=== PATIENT | female | born 1950 | race African-American/Black ===

== ENCOUNTER 2021-11-08 01:49 | Emergency (ER) | payer OTHER ==
--- OUTSIDE RECORDS SUMMARY | 2021-11-08 01:52 | XMS REPORT | Continuity of Care Document ---
:1950 Author Organization [facility] t Address [address] [place] [address] Care Team Providers Name Role Phone Bhavani Hester Primary Care Physician Therapy, Covid Infusion Attending Clinician Unavailable El LARSON, Nikky Attending Clinician Nikky GALLEGOS Attending Clinician Unavailable Payers Payer Name Policy Type Policy Number Effective Date Expiration Date S ource Problems This patient has no known problems. Allergies, Adverse Reactions, Alerts Allergy Allergy Status Severity Reaction(s) Onset Inactive Treating Comm ents Source Name Type Date Date Clinician MEPERIDI DRUG Active Rash Univers NE INGREDI 06-18 ity of 00:00: [place] 00 [facility] Branch Meperidi Propensi Active Rash Univer s ne ty to 06-18 ity of adverse 00:00: [place] reaction 00 Medical s Branch NO KNOWN Drug Active Univers ALLERGIE Class ity of S [facility] Social History Social Habit Start Date Stop Date Quantity Comments Source Sex Assigned At [birth year] [facility] 00:00:00 00:00:00 [facility] Smoking Status Start Date Stop Date Source Unknown if ever smoked [facility] Medications Ordered Filled Start Stop Current Ordering Indication Dosage Frequency Signature Comments Components Source Medication Medication Date Date Medication? Clinician (SIG) Name Name casirivimab 2020- No [id number] 1200mg 1,200 mg, Univers -imdevimab 06-18 Subcutaneo it y of (REGEN-COV 22:45: 21:22 [place] ([place]UA[place] 00 :00 1 dose, On Medical injection e Branch 1,200 mg 06/18/21 at 1745, Routine casirivimab 2020- No [id number] 1200mg 1,200 mg, Univers -imdevimab 06-18 Subcutaneo it y of (REGEN-COV 22:45: 21:22 [place], [place]CE, [place] (EUA[place] 00 :00 1 dose, On Medical injection Tue Branch 1,200 mg 06/18/21 at 1745, Routine Vital Signs Vital Name Observation Time Observation Value Comments Source Systolic blood 2021-06-18 22:07:00 123 mm[Hg] Univer sity pressure [facility] Diastolic blood 2021-06-18 22:07:00 60 mm[Hg] [facility] 2021-06-18 22:07:00 74 /min [facility] Body temperature 2021-06-18 22:07:00 36.89 [facility] Respiratory rate 2021-06-18 22:07:00 20 /min [facility] Oxygen saturation in 2021-06-18 22:07:00 95 /min [facility] Arterial blood by [facility] Pulse oximetry [place] Body height 2021-06-18 21:20:00 157.5 cm [facility] Body weight 2021-06-18 21:20:00 89.812 kg [facility] BMI 2021-06-18 21:20:00 36.21 kg/m2 [facility] Procedures This patient has no known procedures. Encounters Start End Encounter Admission Attending Care Care Encounter Source Date/Time Date/Time Type Type Clinicians Facility Department ID 2021-06-18 2021-06-18 Nurse Therapy, Adc Covid Infusion [facility] [id number] Univers 15:36:15 16:36:15 Visit Reno Gallegos [id number] [id number] [id number] [facility] 053 Branch 2021-06-18 2021-06-18 Outpatient R EL [facility] [id number] [facility] 16:30:00 16:30:00 RENO turner [facility] Results This patient has no known results.
[2021-11-08] MEDS ORDERED: DIPHENHYDRAMINE 25 MG TAB/CAP ONE (02:39)
[2021-11-08] MEDS ORDERED: FAMOTIDINE 20 MG TAB ONE (02:39)
[2021-11-08] MEDS ORDERED: predniSONE 20 MG TAB ONE (02:39)
--- NOTE | 2021-11-08 03:47 | EDPHYS ---
Physician Documentation [facility] Name: Mirela Cooper Age: 70 yrs Sex: Female : 1950 Arrival Date: 11/08/2021 Time: 01:54 Bed 25 Private MD: ED Physician Trey Robles HPI: 11/08 02:33 This 70 yrs old Black Female presents to ER via Ambulatory with complaints of Facial mh7 Swelling. 02:33 The patient presents with localized swelling. Onset: The symptoms/episode mh7 began/occurred last night. Associated signs and symptoms: Pertinent negatives: abdominal pain, Altered mental status chest pain, dysphagia, fever, headache, hives, Light headed nausea, rash, shortness of breath, Syncope vomiting. Associated signs and symptoms: Pertinent positives: swelling. Possible causes: antibiotics, penicillin, NSAIDs, ibuprofen. At home the patient or guardian has treated the symptoms with nothing. Severity of symptoms: At their worst the symptoms were mild today, in the emergency department the symptoms are unchanged. The patient has experienced a previous episode, many years ago. Patient states that she was prescribed amoxicillin and ibuprofen for upper front tooth pain by her dentist. She states that after she took 1 dose of medication last night she started having swelling of her lips and the right side of her face. She denies any chest pain, abdominal pain, fever, shortness of breath, difficulty swallowing, throat pain, nausea, vomiting.. Historical: - Allergies: 02:23 No Known Allergies; sv1 - Immunization history:: Adult Immunizations up to date, Client reports receiving the 2nd dose of the Covid vaccine, Last tetanus immunization: up to date. - Social history:: Smoking status: Patient denies any tobacco usage or history of. ROS: 02:33 Constitutional: Negative for fever, chills, and weight loss, Eyes: Negative for injury, mh7 pain, redness, and discharge, Neck: Negative for injury, pain, and swelling, Cardiovascular: Negative for chest pain, palpitations, and edema, Respiratory: Negative for shortness of breath, cough, wheezing, and pleuritic chest pain, Abdomen/GI: Negative for abdominal pain, nausea, vomiting, diarrhea, and constipation, Back: Negative for injury and pain, : Negative for injury, bleeding, discharge, and swelling, MS/Extremity: Negative for injury and deformity, Skin: Negative for injury, rash, and discoloration, Neuro: Negative for headache, weakness, numbness, tingling, and seizure, Psych: Negative for depression, anxiety, suicide ideation, homicidal ideation, and hallucinations, Endocrine: Negative for neck swelling, polydipsia, polyuria, polyphagia, and marked weight changes, Hematologic/Lymphatic: Negative for swollen nodes, abnormal bleeding, and unusual bruising. Exam: 02:33 Constitutional: This is a well developed, well nourished patient who is awake, alert, mh7 and in no acute distress. 02:33 Eyes: Pupils equal round and reactive to light, extra-ocular motions intact. Lids and lashes normal. Conjunctiva and sclera are non-icteric and not injected. Cornea within normal limits. Periorbital areas with no swelling, redness, or edema. 02:33 Neck: Trachea midline, no thyromegaly or masses palpated, and no cervical lymphadenopathy. Supple, full range of motion without nuchal rigidity, or vertebral point tenderness. No Meningismus. Chest/axilla: Normal chest wall appearance and motion. Nontender with no deformity. No lesions are appreciated. Cardiovascular: Regular rate and rhythm with a normal S1 and S2. No gallops, murmurs, or rubs. Normal PMI, no JVD. No pulse deficits. Respiratory: Lungs have equal breath sounds bilaterally, clear to auscultation and percussion. No rales, rhonchi or wheezes noted. No increased work of breathing, no retractions or nasal flaring. Abdomen/GI: Soft, non-tender, with normal bowel sounds. No distension or tympany. No guarding or rebound. No evidence of tenderness throughout. Back: No spinal tenderness. No costovertebral tenderness. Full range of motion. Skin: Warm, dry with normal turgor. Normal color with no rashes, no lesions, and no evidence of cellulitis. MS/ Extremity: Pulses equal, no cyanosis. Neurovascular intact. Full, normal range of motion. Neuro: Awake and alert, GCS 15, oriented to person, place, time, and situation. Cranial nerves II-XII grossly intact. Motor strength 5/5 in all extremities. Sensory grossly intact. Cerebellar exam normal. Normal gait. Psych: Awake, alert, with orientation to person, place and time. Behavior, mood, and affect are within normal limits. 02:33 Head/face: Noted is swelling, that is mild, of the Lips, right face. 02:33 ENT: Mouth: is normal, Posterior pharynx: is normal, airway is patent, Dental exam: normal, Voice: is normal, Breath odor: is normal. Vital Signs: 02:19 BP 133 / 83 RA Sitting (auto/reg); Pulse 64 MON; Resp 18 S; Temp 98.5(O); Pulse Ox 100% sv1 on R/A; Pain 0/10; 03:29 BP 134 / 72 RA Sitting (auto/reg); Pulse 66 MON; Resp 16 S; Pulse Ox 100% on R/A; sv1 MDM: 03:43 Differential diagnosis: anaphylaxis, angioedema, Hereditary Angioedema non IgE mediated mh drug reaction urticaria. Data reviewed: vital signs, nurses notes. Data interpreted: Pulse oximetry: on room air is 100 %. Interpretation:. Counseling: I had a detailed discussion with the patient and/or guardian regarding: the historical points, exam findings, and any diagnostic results supporting the discharge/admit diagnosis, the need for outpatient follow up, an allergy/data specialist, to return to the emergency department if symptoms worsen or persist or if there are any questions or concerns that arise at home. Response to treatment: the patient's symptoms have markedly improved after treatment. 03:46 Patient medically screened. [facility] Administered Medications: 02:40 Drug: predniSONE 60 mg Route: PO; sv1 02:58 Follow up: Response: No adverse reaction; Pain is decreased sv1 02:40 Drug: Benadryl (diphenhydrAMINE) 50 mg Route: PO; sv1 02:58 Follow up: Response: No adverse reaction; Pain is decreased sv1 02:40 Drug: Pepcid (famotidine) 20 mg Route: PO; sv1 02:58 Follow up: Response: No adverse reaction sv1 Disposition Summary: 11/08/21 03:46 Discharge Ordered Location: Home [facility] Problem: new [facility] Symptoms: have improved [facility] Condition: Stable [facility] Diagnosis - Acute allergic reaction, angioedema [facility] Followup: [facility] - With: Private Physician - When: 1 - 2 days - Reason: Worsening of condition, Recheck today's complaints, Continuance of care, Re-evaluation by your physician Followup: [facility] - With: Dale Green MD - When: 1 - 2 days - Reason: Worsening of condition, Recheck today's complaints Discharge Instructions: - Discharge Summary Sheet [facility] - Drug Allergy, [id number] [facility] - Angioedema, [id number] [facility] Forms: - Medication Reconciliation Form [facility] - Thank You Letter [facility] - Antibiotic Education [facility] - Prescription Opioid Use [facility] Prescriptions: - Benadryl 25 mg Oral Capsule - take 1 capsule by ORAL route every 6 hours As needed; 30 tablet; Refills: 0, [facility] Product Selection Permitted - Clindamycin HCl 300 mg Oral Capsule - take 1 capsule by ORAL route every 6 hours for 7 days; 28 capsule; Refills: 0, [facility] Product Selection Permitted - epinephrine 0.3 mg/0.3 mL Injection auto-injector - inject 0.3 milliliter by INTRAMUSCULAR route as directed as needed for [facility] anaphylaxis; 1 Kit; Refills: 0, Product Selection Permitted - Pepcid 20 mg Oral Tablet - take 1 tablet by ORAL route every 12 hours for 5 days; 10 tablet; Refills: 0, [facility] Product Selection Permitted - Prednisone 20 mg Oral Tablet - take 2 tablets by ORAL route once daily for 5 days; 10 tablet; Refills: 0, [facility] Product Selection Permitted Signatures: Trey Robles MD MD [facility] Eric James RN RN sv1
--- NOTE | 2021-11-08 03:47 | ER ---
Nurse's Notes [facility] Name: Mirela Cooper Age: 70 yrs Sex: Female : 1950 Arrival Date: 11/08/2021 Time: 01:54 Bed 25 Private MD: Diagnosis: Acute allergic reaction, angioedema Presentation: 11/08 02:21 Chief complaint: Patient states: Right facial swelling and pain. The patient was seen sv1 by her dentist 11/07/21. The pain started on 11/06/21. She was prescribed amoxicillin and ibuprophen. Coronavirus screen: Vaccine status: Patient reports receiving the 2nd dose of the covid vaccine. Client denies travel out of the [place] in the last 14 days. Ebola Screen: Patient denies exposure to infectious person. Patient denies travel to an Ebola-affected area in the 21 days before illness onset. No symptoms or risks identified at this time. Initial Sepsis Screen: Does the patient meet any 2 criteria? No. Patient's initial sepsis screen is negative. Risk Assessment: Do you want to hurt yourself or someone else? Patient reports no desire to harm self or others. Onset of symptoms was November 06, 2021. 02:21 Method Of Arrival: Ambulatory sv1 02:21 Acuity: FABIOLA 3 sv1 02:42 Initial Sepsis Screen: Does the patient have a suspected source of infection? No. sv1 Patient's initial sepsis screen is negative. Triage Assessment: 02:19 General: Appears in no apparent distress. uncomfortable. Pain: Complains of pain in sv1 mouth Pain does not radiate. 02:23 General: Behavior is calm, cooperative. sv1 Historical: - Allergies: 02:23 No Known Allergies; sv1 - Immunization history:: Adult Immunizations up to date, Client reports receiving the 2nd dose of the Covid vaccine, Last tetanus immunization: up to date. - Social history:: Smoking status: Patient denies any tobacco usage or history of. Screenin:24 Abuse screen: Denies threats or abuse. Nutritional screening: No deficits noted. sv1 Tuberculosis screening: No symptoms or risk factors identified. Never had TB. Fall Risk None identified. Assessment: 02:26 Reassessment: CC right facial swelling and dental pain. Mild swelling noted. . sv1 Vital Signs: 02:19 BP 133 / 83 RA Sitting (auto/reg); Pulse 64 MON; Resp 18 S; Temp 98.5(O); Pulse Ox 100% sv1 on R/A; Pain 0/10; 03:29 BP 134 / 72 RA Sitting (auto/reg); Pulse 66 MON; Resp 16 S; Pulse Ox 100% on R/A; sv1 ED Course: 01:54 Patient arrived in ED. ja2 02:17 Trey Robles MD is Attending Physician. 7 02:18 Eric James, RN is Primary Nurse. sv1 02:19 Arm band placed on right wrist. sv1 02:23 Triage completed. sv1 02:24 Patient has correct armband on for positive identification. Bed in low position. Call sv1 light in reach. Side rails up X 1. 03:45 Dale Green MD is Referral Physician. [facility] 03:59 No provider procedures requiring assistance completed. Patient did not have IV access sv1 during this emergency room visit. Administered Medications: 02:40 Drug: predniSONE 60 mg Route: PO; sv1 02:58 Follow up: Response: No adverse reaction; Pain is decreased sv1 02:40 Drug: Benadryl (diphenhydrAMINE) 50 mg Route: PO; sv1 02:58 Follow up: Response: No adverse reaction; Pain is decreased sv1 02:40 Drug: Pepcid (famotidine) 20 mg Route: PO; sv1 02:58 Follow up: Response: No adverse reaction sv1 Outcome: 03:46 Discharge ordered by . [facility] 03:59 Discharged to home ambulatory. sv1 03:59 Condition: improved 03:59 Discharge instructions given to patient. 04:00 Patient left the ED. sv1 Signatures: Trey Robles MD MD [facility] Dona [facility] Eric James, RN RN sv1
[2021-11-08 04:04] VITALS: TEMP 98.5; O2SAT 100
[2021-11-08 04:06] VITALS: BP 134/72
== END 2021-11-08 04:00 | disposition home or self-care (01) ==
LOC: ER 01:49
DX: T78.3XXA Angioneurotic edema, initial encounter (principal)
CPT/HCPCS: 99283; J7512

== ENCOUNTER 2022-11-17 09:39 | Emergency (ER) | payer OTHER ==
--- OUTSIDE RECORDS SUMMARY | 2022-11-17 09:47 | XMS REPORT | Continuity of Care Document ---
:1950 [address] [facility] t Address [address] [place] [address] Care Team Providers Name Role Phone Constantine Hester Primary Care Physician Therapy, Adc Covid Infusion Attending Clinician Unavailable Reno Gallegos MD Attending Clinician RENO GALLEGOS Attending Clinician Unavailable Payers Payer Name Policy Type Policy Number Effective Date Expiration Date S ource Problems This patient has no known problems. Allergies, Adverse Reactions, Alerts Allergy Allergy Status Severity Reaction(s) Onset Inactive Treating Comm ents Source Name Type Date Date Clinician MEPERIDI DRUG Active Rash Univers NE INGREDI 06-18 ity of 00:00: [place] 00 Medical Branch Meperidi Propensi Active Rash Univer s ne ty to 06-18 ity of adverse 00:00: [place] reaction 00 Medical s Branch NO KNOWN Drug Active Univers ALLERGIE Class ity of S [facility] Social History Social Habit Start Date Stop Date Quantity Comments Source Sex Assigned At [birth year] [facility] 00:00:00 00:00:00 Medical Branch Smoking Status Start Date Stop Date Source Unknown if ever smoked [facility] Medications Ordered Filled Start Stop Current Ordering Indication Dosage Frequency Signature Comments Components Source Medication Medication Date Date Medication? Clinician (SIG) Name Name casirivimab 2020- No [id number] 1200mg 1,200 mg, Univers -imdevimab 06-18 Subcutaneo it y of (REGEN-COV 22:45: 21:22 [place], [place], [place] (EUA[place] 00 :00 1 dose, On Medical injection Tue Branch 1,200 mg 06/18/21 at 1745, Routine casirivimab 2020- [id number] 1200mg 1,200 mg, Univers -imdevimab 06-18 Subcutaneo it y of (REGEN-COV 22:45: 21:22 [place], ONCE, [place] (EUA)) 00 :00 1 dose, On Medical injection Tue Branch 1,200 mg 06/18/21 at 1745, Routine Vital Signs Vital Name Observation Time Observation Value Comments Source Systolic blood 2021-06-18 22:07:00 123 mm[Hg] Univer sity of pressure [facility] Diastolic blood 2021-06-18 22:07:00 60 mm[Hg] [facility] Heart rate 2021-06-18 22:07:00 74 /min [facility] Body temperature 2021-06-18 22:07:00 36.89 Ilda [facility] Respiratory rate 2021-06-18 22:07:00 20 /min [facility] Oxygen saturation in 2021-06-18 22:07:00 95 /min [facility] Arterial blood by [facility] [place] [facility] Pulse oximetry [place] Body height 2021-06-18 21:20:00 157.5 cm [facility] Body weight 2021-06-18 21:20:00 89.812 kg [facility] BMI 2021-06-18 21:20:00 36.21 kg/m2 [facility] Procedures This patient has no known procedures. Encounters Start End Encounter Admission Attending Care Care Encounter Source Date/Time Date/Time Type Type Clinicians Facility Department ID 2021-06-18 2021-06-18 Nurse Therapy, Adc Covid Infusion [facility] [id number] Univers 15:36:15 16:36:15 Visit Reno Gallegos [id number] [facility] [id number] [id number] [facility] 0[facility] Branch 2021-06-18 2021-06-18 Outpatient R J[facility] [id number] Univers 16:30:00 16:30:00 RENO turner [facility] Results This patient has no known results.
--- NOTE | 2022-11-17 10:42 | EDPHYS ---
Physician Documentation [facility] Name: Mirela Cooper Age: 71 yrs Sex: Female : 1950 Arrival Date: 11/17/2022 Time: 09:42 Bed 12 Private MD: ED Physician Pilo Sandy HPI: 11/17 10:37 This 71 yrs old Black Female presents to ER via Ambulatory with complaints of Arm Pain, kb Shoulder Pain. 10:37 The complaints affect the left upper arm. The patient has not recently seen a physician.kb 10:38 The patient or guardian complains of pain. Context: The problem was sustained at home, kb resulted from unknown cause. Onset: The symptoms/episode began/occurred 4 day(s) ago. Treatment prior to arrival includes: no previous treatment. Modifying factors: The symptoms are alleviated by nothing. the symptoms are aggravated by movement. Associated signs and symptoms: Pertinent positives: pain, tingling. Severity of symptoms: At their worst the symptoms were moderate, in the emergency department the symptoms are unchanged. The patient has not experienced similar symptoms in the past. Historical: - Allergies: 10:01 meperidine; jl7 - Home Meds: 10:02 amlodipine 5 mg tab 1 tab BID [Active]; atorvastatin 20 mg oral tab 1 tab once daily jl7 [Active]; ezetimibe 10 mg oral tab 1 tab once daily [Active]; sertraline 50 mg oral tab [Active]; bisoprolol-hydrochlorothiazide 10-6.25 mg oral tab 1 tab once daily [Active]; - PMHx: 10:01 Hypertensive disorder; jl7 10:02 Anxiety; Hypercholesterolemia; jl7 - Immunization history:: Client reports receiving the 2nd dose of the Covid vaccine. - Social history:: Smoking status: Patient denies any tobacco usage or history of. ROS: 10:36 Constitutional: Negative for fever, chills, and weight loss. kb 10:36 MS/extremity: Positive for pain, of the left arm. 10:36 All other systems are negative. Exam: 10:36 Constitutional: This is a well developed, well nourished patient who is awake, alert, kb and in no acute distress. Head/Face: Normocephalic, atraumatic. ENT: Moist Mucous membranes Cardiovascular: Regular rate and rhythm with a normal S1 and S2. No gallops, murmurs, or rubs. No pulse deficits. Respiratory: Respirations even and unlabored. No increased work of breathing. Talking in full sentences Abdomen/GI: Soft, non-tender. No distention Skin: Warm, dry with normal turgor. Normal color. Neuro: Awake and alert, GCS 15, oriented to person, place, time, and situation. Moves all extremities. Normal gait. Psych: Awake, alert, with orientation to person, place and time. Behavior, mood, and affect are within normal limits. 10:36 Back: pain, of the left trapezius and left scapular area, tenderness. 10:36 Musculoskeletal/extremity: Extremities: grossly normal except: noted in the left upper arm: pain, ROM: intact in all extremities, Circulation is intact in all extremities. the right hand and left hand Tingling of extremity. Vital Signs: 09:59 BP 160 / 93; Pulse 67; Resp 17; Temp 98.6; Pulse Ox 100% ; Weight 89.36 kg; Height 5 jl7 ft. 0 in. (152.40 cm); Pain 7; 09:59 Body Mass Index 38.47 (89.36 kg, 152.40 cm) jl7 MDM: 09:55 Patient medically screened. kb 10:38 Differential diagnosis: radiculopathy, myalgia, strain. Data reviewed: vital signs, kb nurses notes. Test considered but Not performed: X-ray: shoulder and humerus x-rays considered, but pt has no bony tenderness, has full ROM and denies injury. Counseling: I had a detailed discussion with the patient and/or guardian regarding: the historical points, exam findings, and any diagnostic results supporting the discharge/admit diagnosis, radiology results, the need for outpatient follow up, a orthopedic surgeon, to return to the emergency department if symptoms worsen or persist or if there are any questions or concerns that arise at home. ED course: Patient is a 71-year-old female who presents for left arm pain that radiates up to her shoulder for 4 days and tingling to bilateral hands for a week. States has been seen by Dr. Hester, her PCP, for the tingling and was referred to Dr. Celis. Denies any injury or trauma. On exam patient has full range of motion without pain. Has no bony tenderness. Has tenderness to left upper arm and left scapular area. Equal relief driller strength. Discussed return precautions and need for follow-up with Ortho/PCP. Verbal understanding received.. Administered Medications: 11:05 Drug: traMADol 50 mg Route: PO; jl7 11:19 Follow up: Response: Medication administered at discharge. jl7 11:06 Drug: Decadron (dexamethasone) 10 mg Route: IM; Site: right deltoid; jl7 11:19 Follow up: Response: Medication administered at discharge. 7 Disposition: 15:46 Co-signature as Attending Physician, Pilo Sandy MD I reviewed the patient's care rn provided by the Advanced Practice Provider and agree with the diagnosis and treatment plan. Disposition Summary: 11/17/22 10:41 Discharge Ordered Location: Home kb Condition: Stable kb Diagnosis - Pain in left upper arm kb Followup: kb - With: Emergency Department - When: As needed - Reason: Worsening of condition Followup: kb - With: Private Physician - When: 2 - 3 days - Reason: Recheck today's complaints, Continuance of care, Re-evaluation by your physician Discharge Instructions: - Discharge Summary Sheet kb - Musculoskeletal Pain kb - Radicular Pain kb Forms: - Medication Reconciliation Form kb - Thank You Letter kb - Antibiotic Education kb - Prescription Opioid Use kb Prescriptions: - Prednisone 20 mg Oral Tablet - take 1 tablet by ORAL route once daily for 5 days; 5 tablet; Refills: 0, kb Product Selection Permitted - orphenadrine citrate 100 mg Oral Tablet Sustained Release - take 1 tablet by ORAL route 2 times per day As needed; 20 tablet; Refills: 0, kb Product Selection Permitted Signatures: Pavithra Mortensen FNP-C FNP-Pilo Calderón MD MD rn Leal, Jahala, RN RN jl7
--- NOTE | 2022-11-17 10:42 | ER ---
Nurse's Notes [facility] Name: Mirela Cooper Age: 71 yrs Sex: Female : 1950 Arrival Date: 11/17/2022 Time: 09:42 Bed 12 Private MD: Diagnosis: Pain in left upper arm Presentation: 11/17 09:59 Chief complaint: Patient states: Left elbow pain, radiates to left shoulder x 4 days. jl7 Coronavirus screen: At this time, the client does not indicate any symptoms associated with coronavirus-19. Ebola Screen: No symptoms or risks identified at this time. Initial Sepsis Screen: Does the patient meet any 2 criteria? No. Patient's initial sepsis screen is negative. Does the patient have a suspected source of infection? No. Patient's initial sepsis screen is negative. Risk Assessment: Do you want to hurt yourself or someone else? Patient reports no desire to harm self or others. Onset of symptoms was November 14, 2022. 09:59 Method Of Arrival: Ambulatory [facility] 09:59 Acuity: FABIOLA 4 jl7 Triage Assessment: 10:01 General: Appears in no apparent distress. uncomfortable, Behavior is calm, cooperative, jl7 appropriate for age. Pain: Complains of pain in left elbow Pain radiates to anterior aspect of left shoulder Pain currently is 9 out of 10 on a pain scale. Historical: - Allergies: 10:01 meperidine; jl7 - Home Meds: 10:02 amlodipine 5 mg tab 1 tab BID [Active]; atorvastatin 20 mg oral tab 1 tab once daily jl7 [Active]; ezetimibe 10 mg oral tab 1 tab once daily [Active]; sertraline 50 mg oral tab [Active]; bisoprolol-hydrochlorothiazide 10-6.25 mg oral tab 1 tab once daily [Active]; - PMHx: 10:01 Hypertensive disorder; jl7 10:02 Anxiety; Hypercholesterolemia; jl7 - Immunization history:: Client reports receiving the 2nd dose of the Covid vaccine. - Social history:: Smoking status: Patient denies any tobacco usage or history of. Assessment: 10:01 Reassessment: TRISH Arshad in triage assessing pt. jl7 Vital Signs: 09:59 BP 160 / 93; Pulse 67; Resp 17; Temp 98.6; Pulse Ox 100% ; Weight 89.36 kg; Height 5 jl7 ft. 0 in. (152.40 cm); Pain 7/10; 09:59 Body Mass Index 38.47 (89.36 kg, 152.40 cm) jl7 ED Course: 09:42 Patient arrived in ED. rg4 09:54 Pavithra Mortensen FNP-C is [facility]. kb 09:54 Pilo Sandy MD is Attending Physician. kb 10:01 Triage completed. jl7 10:01 Arm band placed on right wrist. jl7 11:20 No provider procedures requiring assistance completed. Patient did not have IV access jl7 during this emergency room visit. Administered Medications: 11:05 Drug: traMADol 50 mg Route: PO; jl7 11:19 Follow up: Response: Medication administered at discharge. jl7 11:06 Drug: Decadron (dexamethasone) 10 mg Route: IM; Site: right deltoid; jl7 11:19 Follow up: Response: Medication administered at discharge. jl7 Medication: 11:20 VIS not applicable for this client. jl7 Outcome: 10:41 Discharge ordered by . kb 11:20 Discharged to home ambulatory. jl7 11:20 Condition: stable 11:20 Discharge instructions given to patient, Instructed on discharge instructions, follow up and referral plans. medication usage, Demonstrated understanding of instructions, follow-up care, medications, Prescriptions given X 2. 11:20 Patient left the ED. jl7 Signatures: Pavithra Mortensen FNP-C FNP-Ckb Garcia, Rubi rg4 Denys Shelby, RN RN jl7
[2022-11-17] MEDS ORDERED: KETOROLAC 30 MG/ML INJ ONE (11:05)
[2022-11-17] MEDS ORDERED: TRAMADOL HCL 50 MG TAB ONE (11:05)
[2022-11-17] MEDS ORDERED: dexAMETHasone 10 MG/ML VIAL ONE (11:11)
[2022-11-17 12:14] VITALS: BP 160/93; TEMP 98.6; O2SAT 100
== END 2022-11-17 11:20 | disposition home or self-care (01) ==
LOC: ER 09:39
DX: M79.622 Pain in left upper arm (principal); I10 Essential (primary) hypertension; E78.00 Pure hypercholesterolemia, unspecified; F41.9 Anxiety disorder, unspecified; Z88.8 Allergy status to other drugs, medicaments and biological substances
CPT/HCPCS: 96372; 99283; J1100